=== PATIENT | male | born 1985 | race Caucasian/White ===

== ENCOUNTER 2017-12-19 14:40 | Emergency (ER) | payer OTHER ==
[~2017-12-19] VITALS: Ht 180.3 cm; Wt 79.4 kg
[~2017-12-19 14:40] MED LIST: AUGMENTIN 500M500 MG PO; PROAIR HFA0.09 MG/Ac INH
--- NOTE | 2017-12-19 15:28 | ED HAND/WRIST INJURY COMPLAINT ---
History of Present Illness General Chief Complaint: Laceration Procedure Stated Complaint: LAC TO R THUMB Source: patient Exam Limitations: no limitations Vital Signs & Intake/Output Vital Signs & Intake/Output ED Intake and Output 12/20 0000 12/19 1200 Intake Total Output Total Balance Patient 175 lb Weight Weight Reported by Patient Measurement Method Allergies Uncoded Allergies: ANIMAL HAIR/ DANDER/ ENVIRONMENTAL (SNEEZING, CONGESTION, MAY TRIGGER ASTHMA ) Reconcile Medications Albuterol Sulfate (Proair Hfa) 0.09 MG/Actuation CHUCHO 2 PUFF INH PRN ASTHMA ( Reported) Augmentin (Augmentin 500-125 Tablet) 500 MG TAB 1 TAB PO BID OPEN FRACTURE Triage Note: LAC TO RIGHT THUMB BY HOLE SAW BLADE. BLEEDING CONTROLLED. LAST TD UNKNOWN Triage Nurses Notes Reviewed? yes Occurred: just prior to arrival Duration: hour(s): (2), constant, continues in ED, getting worse Timing: single episode today Injury Environment: home Severity: mild, moderate Severity Numbers: 7 Pain/Injury Location: Right: 1st finger. Context: laceration Method of Injury: laceration No Modifying Factors: none HPI: 32-year-old male with no past medical history presents for evaluation of a laceration to his right thumb. Patient states that he was at work using a drill when his thumb got caught in the DRILL BIT. He reports a laceration to the palmar aspect of the THUMB. No other injuries. No numbness or tingling. He is able to move the thumb. He is unsure of his last tetanus (Zachary Yeboah) Past History Travel History Traveled to [place] past 21 day No Medical History Any Pertinent Medical History? see below for history Neurological: NONE EENT: allergies Cardiovascular: NONE Respiratory: asthma Gastrointestinal: NONE Hepatic: NONE Renal: NONE Musculoskeletal: NONE Psychiatric: NONE Endocrine: NONE Blood Disorders: NONE Cancer(s): NONE Surgical History Surgical History: non-contributory Psychosocial History What is your primary language Arabic Tobacco Use: Never used ETOH Use: occasional use Illicit Drug Use: denies illicit drug use Family History Hx Contributory? No (Zachary Yeboah) Review of Systems Review of Systems Constitutional: Reports: no symptoms. EENTM: Reports: no symptoms. Respiratory: Reports: no symptoms. Cardiovascular: Reports: no symptoms. GI: Reports: no symptoms. Genitourinary: Reports: no symptoms. Musculoskeletal: Reports: no symptoms. Skin: Reports: see HPI (LACERATION ). Neurological/Psychological: Reports: no symptoms. Hematologic/Endocrine: Reports: no symptoms. Immunologic/Allergic: Reports: no symptoms. All Other Systems: Reviewed and Negative (Zachary Yeboah) Physical Exam Physical Exam General Appearance: well developed/nourished, no apparent distress, alert, awake Head: atraumatic, normal appearance Eyes: Bilateral: normal appearance, EOMI. Ears, Nose, Throat: hearing grossly normal Neck: normal inspection, supple, full range of motion Cardiovascular/Respiratory: no respiratory distress Forearm Left: normal range of motion, normal inspection Forearm Right: normal range of motion, normal inspection Wrist Left: normal range of motion, normal inspection Wrist Right: normal range of motion, normal inspection Hand Left: normal inspection, normal range of motion Hand Right: normal range of motion, lacerations, 1st finger, THERE IS A 2 CM CURVED LACERATION LOCATED ON THE DISTAL SEGMENT OF THE PALMAR ASPECT OF THE THUMB. tHERE IS SUBCUTANEOUS TISSUE VISIBLE. sMALL AMOUNT OF ACTIVE BLEEDING. nO FOREIGN BODY. fULL RANGE OF MOTION OF THE THUMB IS INTACT. nEUROVASCULAR SUPPLY INTACT CAP REFILL LESS THAN 2 SECONDS Neurologic/Tendon: normal sensation, normal motor functions, normal tendon functions Skin: intact, normal color, warm/dry Lymphatic: no anterior cervical kelsea (Zachary Yeboah) Progress Differential Diagnosis: contusion, dislocation, fracture, sprain, tenosynovitis, LACERATION Plan of Care: Current Medications Sig/Ashkan Start time Last Medication Dose Stop Time Status Admin Lidocaine 20 ML ONCE ONE 12/19 1529 AC (Lidocaine 1%) 12/19 1530 Tetanus/Diphtheria 0.5 ML ONCE ONE 12/19 1529 AC Toxoids Adsorbed 12/19 1530 (Decavac) Patient seen and evaluated. He has a laceration to the right thumb that'll require sutures. The area was flushed with sterile water. Betadine prep. 1% lidocaine without epi was used for local pain control. 4 4-0 nylon simple interrupted sutures are placed to approximate the wound. Patient tolerated well. Sterile dressing applied. Discussed wound care but she is in detail. Look out for signs of infection. Change dressing daily. Tetanus updated. Tylenol and ibuprofen for pain. Sutures removed in 7-10 days. Return sooner with any concerns. Patient agrees the plan (Zachary Yeboah) Departure Departure Disposition: HOME OR SELF CARE Condition: Stable Clinical Impression Primary Impression: Laceration of thumb Qualifiers: Encounter type: initial encounter Damage to nail status: without damage Foreign body presence: without foreign body Laterality: right Qualified Code: S61.011A - Laceration without foreign body of right thumb without damage to nail, initial encounter Referrals: Darien Hazel MD (PCP/Family) Additional Instructions: Keep the area clean and dry. Change dressing once daily. [place] for signs of infection like redness swelling discharge or pain. Return to the emergency department or primary care doctor in 7-10 days for suture removal. Departure Forms: Customer Survey General Discharge Information Industrial Accident Report (Zachary Yeboah) PA/ORTHOPAEDIC DOCTOR Co-Sign Statement Statement: ED Attending supervision documentation- [] I saw and evaluated the patient. I have also reviewed all the pertinent lab results and diagnostic results. I agree with the findings and the plan of care as documented in the PA's/ORTHOPAEDIC DOCTOR's documentation. [X] I have reviewed the ED Record and agree with the PA's/ORTHOPAEDIC DOCTOR's documentation. [] Additions or exceptions (if any) to the PAs/ORTHOPAEDIC DOCTOR's note and plan are summarized below: [] (Ashley PAK,Christel) Procedures Laceration/Wound Repair Laceration/Wound Repair: Wound Location: upper extremity Wound's Depth, Shape: flap, subcutaneous Wound Length (cm): 2 Wound Explored: clean, no foreign body removed, irrigated extensively Irrigated w/ Saline (ccs): 300 Betadine Prep? Yes Anesthesia: 1% lidocaine Volume Anesthetic (ccs): 5 Wound Debrided: minimal Wound Repaired With: sutures Suture Size/Type: 4:0, nylon Number of Sutures: 4 Layer Closure? No Tetanus Status: not up to date (Zachary Yeboah)
[2017-12-19 16:36] VITALS: BP 135/88
== END 2017-12-19 16:37 ==
LOC: ERH 14:40
DX: S61.011A Laceration without foreign body of right thumb without damage to nail, initial encounter (principal); W29.8XXA Contact with other powered hand tools and household machinery, initial encounter; Y93.9 Activity, unspecified; Y92.009 Unspecified place in unspecified non-institutional (private) residence as the place of occurrence of the external cause
CPT/HCPCS: 90471; 90714